=== PATIENT | female | born 1980 | race Caucasian/White ===

== ENCOUNTER 2017-04-06 18:16 | Emergency (ER) | payer OTHER | END 2017-04-06 20:00 | disposition home or self-care (01) | LOC: E/R 18:16 | DX: A08.4 Viral intestinal infection, unspecified (principal); J45.909 Unspecified asthma, uncomplicated | CPT/HCPCS: 99284; Z7502 ==

== ENCOUNTER 2017-05-16 12:29 | Emergency (ER) | payer OTHER ==
[2017-05-16] MEDS: HYDROCODONE/APAP (5/325) TAB PO (13:49)
[2017-05-16 14:33] LABS: ADD UMIC YES; UR ASCORBIC ACID 40 mg/dL (NEGATIVE); UR BACTERIA FEW /HPF (NONE SEEN); UR BILIRUBIN (Dip) NEGATIVE (NEGATIVE); UR BLOOD (Dip) NEGATIVE (NEGATIVE); UR CLARITY SLIGHTLY CLOUDY (CLEAR); UR COLOR YELLOW (YELLOW); UR GLUCOSE (Dip) NEGATIVE (NEGATIVE); UR KETONES (Dip) NEGATIVE (NEGATIVE); UR LEUKOCYTE ESTERASE (Dip) NEGATIVE Leu/ul (NEGATIVE); UR MUCUS FEW /HPF (NONE SEEN); UR NITRITE (Dip) NEGATIVE (NEGATIVE); UR RBC 3 /HPF (0-5); UR SPECIFIC GRAVITY (Dip) 1.026 (1.003-1.030); UR SQUAMOUS EPITHELIAL CELL FEW /HPF (FEW); UR TOTAL PROTEIN (Dip) 1+ mg/dl (NEGATIVE); UR UROBILINOGEN (Dip) NEGATIVE (NEGATIVE); UR WBC 2 /HPF (0-5)
== END 2017-05-16 15:44 | disposition left against medical advice (07) ==
LOC: FTE 12:29
DX: M54.5 Low back pain (principal); R31.9 Hematuria, unspecified
CPT/HCPCS: 71045; 76775; 81001; 81025; 99285-25

== ENCOUNTER 2017-06-11 14:52 | Emergency (ER) | payer OTHER ==
[2017-06-11] MEDS: ONDANSETRON (ODT) 4 MG TAB ODT (17:36)
[2017-06-11] MEDS: HYDROmorphONE 2 MG/ML SYG IM (17:37)
[2017-06-11] MEDS: HYDROmorphONE 0.5 MG/0.5 ML SYG IV (18:36)
[2017-06-11] MEDS: ONDANSETRON 4 MG INJ IV (18:36)
== END 2017-06-11 23:12 | disposition home or self-care (01) ==
LOC: FTE 14:52
DX: S39.92XA Unspecified injury of lower back, initial encounter (principal); S09.90XA Unspecified injury of head, initial encounter; J45.909 Unspecified asthma, uncomplicated; R93.0 Abnormal findings on diagnostic imaging of skull and head, not elsewhere classified; V18.4XXA Pedal cycle driver injured in noncollision transport accident in traffic accident, initial encounter
CPT/HCPCS: 70450; 72125; 72128; 72148; 81025; 96372; 96374; 96375; 99285-25

== ENCOUNTER 2017-09-14 05:54 | Inpatient (IN) | payer OTHER ==
[2017-09-14] MEDS: CEFAZOLIN 2 GM/50 ML (PMX) 50 ML IVPB (06:00)
[2017-09-14] MEDS ORDERED: LACTATED RINGER'S 1,000 ML IV* (06:00)
[2017-09-14] MEDS ORDERED: ROCURONIUM 50 MG INJ (07:36)
[2017-09-14] MEDS ORDERED: CEFAZOLIN 1 GM INJ (07:36)
[2017-09-14] MEDS ORDERED: FENTAnyl 50 MCG/ML VIAL ×4 (07:36→12:29)
[2017-09-14] MEDS ORDERED: LIDOCAINE 100 MG SYRINGE (07:36)
[2017-09-14] MEDS ORDERED: SUCCINYLCHOLINE CHLORIDE 100 MG/5 ML SYG IV (07:36)
[2017-09-14] MEDS ORDERED: PROPOFOL 20 ML (07:36)
[2017-09-14] MEDS ORDERED: SUGAMMADEX SODIUM 200 MG/2 ML VIAL IV (07:36)
[2017-09-14] MEDS ORDERED: MIDAZOLAM 1 MG/ML 2 ML INJ (07:36)
[2017-09-14] MEDS ORDERED: DEXAMETHASONE 4 MG/ML 1 ML INJ (08:23)
[2017-09-14] MEDS: CEFAZOLIN 1 GM INJ (08:33)
[2017-09-14] MEDS: BUPIVACAINE 0.5%/EPI (SDV) 30 ML INJ (08:33)
[2017-09-14] MEDS: THROMBIN 5000 UNIT VIAL (08:34)
[2017-09-14] MEDS: HEPARIN 1000 UNITS/ML 10 ML INJ (08:34)
[2017-09-14] MEDS: GELATIN SIZE 100 SPONGE (08:34)
[2017-09-14] MEDS ORDERED: HYDROmorphONE 1 MG/5 ML IV SYRINGE IV (09:30)
[2017-09-14] MEDS ORDERED: ALBUTEROL 0.083% (NEB) 2.5 MG/3 ML AMP HHN (09:30)
[2017-09-14] MEDS ORDERED: MIDAZOLAM 1 MG/ML 2 ML INJ IV (09:30)
[2017-09-14] MEDS ORDERED: FENTAnyl 50 MCG/ML VIAL IV ×3 (09:30)
[2017-09-14] MEDS ORDERED: METOCLOPRAMIDE 10 MG INJ IV (09:30)
[2017-09-14] MEDS ORDERED: PHENYLephrine (100 MCG/ML) 5ML SYG (12:31)
[2017-09-14] MEDS: ONDANSETRON 4 MG INJ IV (13:28)
[2017-09-14] MEDS: HYDROmorphONE 1 MG/5 ML IV SYRINGE IV ×2 (13:28→13:41)
[2017-09-14] MEDS: MEPERIDINE 25 MG INJ IV ×3 (13:28→15:51)
[2017-09-14] MEDS ORDERED: NACL 0.9% 3 ML SYG IV (13:30)
[2017-09-14] MEDS ORDERED: ONDANSETRON 4 MG INJ IV (13:30)
[2017-09-14] MEDS ORDERED: ACETAMINOPHEN 325 MG TAB PO (13:30)
[2017-09-14] MEDS ORDERED: NALOXONE (0.4 MG/ML) INJ IV (13:30)
[2017-09-14] MEDS ORDERED: PROCHLORPERAZINE 10 MG TAB PO (13:30)
[2017-09-14] MEDS ORDERED: HYDROCODONE/APAP (5/325) TAB PO (13:30)
[2017-09-14] MEDS: HYDROmorphONE 0.2 MG/ML PCA IV (13:54)
[2017-09-14] MEDS: LORAZEPAM 2 MG INJ IV (14:00)
[2017-09-14] MEDS: DIPHENHYDRAMINE 50 MG INJ IV (14:15)
[2017-09-14] MEDS: CEFAZOLIN 1 GM/50 ML (PMX) 50 ML IVPB ×2 (17:18→23:45)
[2017-09-14] MEDS: BRIMONIDINE 0.2% 5 ML BTL BOTH EYES (22:36)
[2017-09-15] MEDS: HYDROmorphONE 0.2 MG/ML PCA IV (01:28)
[2017-09-15] MEDS ORDERED: ALBUTEROL 0.083% (NEB) 2.5 MG/3 ML AMP HHN (02:00)
[2017-09-15 05:12] LABS: HEMATOCRIT 33.7 % (37.0-47.0)
[2017-09-15 05:35] LABS: ANION GAP 18 (8-16)
[2017-09-15 05:40] LABS: BLOOD UREA NITROGEN 6 mg/dl (7-20); CARBON DIOXIDE 20 mmol/L (21-31); CHLORIDE 104 mmol/L (97-110); CREATININE 0.49 mg/dl (0.44-1.00); GLUCOSE 144 mg/dl (70-220); POTASSIUM 3.4 mmol/L (3.5-5.1); SODIUM 139 mmol/L (135-144)
[2017-09-15] MEDS: LEVOTHYROXINE 112 MCG TAB PO (06:31)
[2017-09-15] MEDS: CEFAZOLIN 1 GM/50 ML (PMX) 50 ML IVPB ×2 (06:31→11:57)
[2017-09-15] MEDS: CARISOPRODOL 350 MG TAB PO ×2 (08:05→17:03)
[2017-09-15] MEDS: HYDROmorphONE 0.5 MG/0.5 ML SYG IV ×4 (08:58→20:02)
[2017-09-15] MEDS: BRIMONIDINE 0.2% 5 ML BTL BOTH EYES (09:00)
[2017-09-15] MEDS: LORATADINE 10 MG TAB PO (09:00)
[2017-09-15] MEDS: POTASSIUM CHLORIDE (SR) 20 MEQ TAB PO (10:14)
[2017-09-15] MEDS: HYDROCODONE/APAP (5/325) TAB PO ×3 (10:15→18:05)
[2017-09-15] MEDS: ALPRAZOLAM 0.25 MG TAB PO (21:19)
[2017-09-16] MEDS: HYDROmorphONE 0.5 MG/0.5 ML SYG IV ×4 (01:02→20:40)
[2017-09-16] MEDS: HYDROCODONE/APAP (5/325) TAB PO ×3 (02:44→11:19)
[2017-09-16] MEDS: CARISOPRODOL 350 MG TAB PO ×2 (03:25→16:07)
[2017-09-16] MEDS ORDERED: VITAMIN A & D 5 GM OINT PACKET TOP (05:46)
[2017-09-16 06:13] LABS: ADD MAN DIFF? NO
[2017-09-16 06:19] LABS: ABNORMAL IP MESSAGE 1; BASOPHIL # 0.1 10^3/ul (0.0-0.1); BASOPHILS % 0.4 % (0.0-2.0); EOSINOPHILS # 0.2 10^3/ul (0.0-0.5); EOSINOPHILS % 1.6 % (0.0-7.0); HEMATOCRIT 34.6 % (37.0-47.0); HEMOGLOBIN 11.5 g/dl (12.0-16.0); LYMPHOCYTES # 2.3 10^3/ul (0.8-2.9); LYMPHOCYTES % 15.1 % (15.0-51.0); MEAN CORPUSCULAR HEMOGLOBIN 29.6 pg (29.0-33.0); MEAN CORPUSCULAR HGB CONC 33.2 g/dl (32.0-37.0); MEAN CORPUSCULAR VOLUME 89.2 fl (82.0-101.0); MEAN PLATELET VOLUME 13.2 fl (7.4-10.4); MONOCYTE # 1.3 10^3/ul (0.3-0.9); MONOCYTES % 8.4 % (0.0-11.0); NEUTROPHIL # 11.2 10^3/ul (1.6-7.5); NEUTROPHILS % 73.9 % (39.0-77.0); PLATELET COUNT 233 10^3/UL (140-415); RED BLOOD COUNT 3.88 10^6/ul (4.20-5.40); RED CELL DISTRIBUTION WIDTH 13.6 % (11.5-14.5)
[2017-09-16 06:19] LABS: WHITE BLOOD COUNT 15.2 10^3/ul (4.8-10.8)
[2017-09-16 06:35] LABS: POSITIVE DIFF @See below
[2017-09-16] MEDS: LEVOTHYROXINE 112 MCG TAB PO (06:42)
[2017-09-16 06:49] LABS: ALANINE AMINOTRANSFERASE 28 IU/L (13-69); ALBUMIN 3.9 g/dl (3.3-4.9); ALBUMIN/GLOBULIN RATIO 1.21; ALKALINE PHOSPHATASE 52 IU/L (42-121); ANION GAP 13 (8-16); ASPARTATE AMINO TRANSFERASE 46 IU/L (15-46); BILIRUBIN,INDIRECT 1.1 mg/dl (0-1.1); BILIRUBIN,TOTAL 1.1 mg/dl (0.2-1.3); CALCIUM 8.4 mg/dl (8.4-10.2); CARBON DIOXIDE 25 mmol/L (21-31); CHLORIDE 107 mmol/L (97-110); CREATININE 0.54 mg/dl (0.44-1.00); GLUCOSE 116 mg/dl (70-220); POTASSIUM 3.9 mmol/L (3.5-5.1); SODIUM 141 mmol/L (135-144); TOTAL PROTEIN 7.1 g/dl (6.1-8.1)
[2017-09-16 08:14] LABS: BLOOD UREA NITROGEN 5 mg/dl (7-20)
[2017-09-16] MEDS: BRIMONIDINE 0.2% 5 ML BTL BOTH EYES (08:47)
[2017-09-16] MEDS: VIIBRYD 20 MG PO (08:48)
[2017-09-16] MEDS: LORATADINE 10 MG TAB PO (08:49)
[2017-09-16] MEDS ORDERED: VIIBRYD PO (09:00)
[2017-09-16] MEDS: BISACODYL 10 MG SUPP PR (12:57)
[2017-09-16] MEDS: HYDROmorphONE 1 MG/ML SYG IV (12:59)
[2017-09-16] MEDS: DEXTROSE 5%-0.45% NACL 1,000 ML IV (16:14)
[2017-09-16] MEDS: DEXAMETHASONE 10 MG/ML 1 ML INJ IV (17:44)
[2017-09-16] MEDS: ZOLPIDEM 5 MG TAB PO (22:47)
[2017-09-17] MEDS: HYDROCODONE/APAP (5/325) TAB PO ×4 (01:00→21:33)
[2017-09-17] MEDS: LEVOTHYROXINE 112 MCG TAB PO (06:06)
[2017-09-17] MEDS: BRIMONIDINE 0.2% 5 ML BTL BOTH EYES (08:49)
[2017-09-17] MEDS: VIIBRYD 20 MG PO (08:49)
[2017-09-17] MEDS: LORATADINE 10 MG TAB PO (08:50)
[2017-09-17] MEDS: HYDROmorphONE 0.5 MG/0.5 ML SYG IV ×2 (09:36→17:44)
[2017-09-17] MEDS: CARISOPRODOL 350 MG TAB PO (15:18)
[2017-09-17] MEDS: ZOLPIDEM 5 MG TAB PO (23:42)
[2017-09-18] MEDS: HYDROCODONE/APAP (5/325) TAB PO ×2 (05:34→09:52)
[2017-09-18] MEDS: LEVOTHYROXINE 112 MCG TAB PO (05:34)
[2017-09-18] MEDS: VIIBRYD 20 MG PO (09:06)
[2017-09-18] MEDS: CARISOPRODOL 350 MG TAB PO (09:06)
[2017-09-18] MEDS: LORATADINE 10 MG TAB PO (09:07)
[2017-09-18] MEDS: BRIMONIDINE 0.2% 5 ML BTL BOTH EYES (09:08)
== END 2017-09-18 15:30 | disposition home or self-care (01) | DRG 454 ==
LOC: REC 05:54 → MS1 14:52
PROC: 0SG30A0 Fusion of Lumbosacral Joint with Interbody Fusion Device, Anterior Approach, Anterior Column, Open Approach (ICD-10-PCS; principal; 2017-09-14 07:30)
PROC: 0SG30K1 Fusion of Lumbosacral Joint with Nonautologous Tissue Substitute, Posterior Approach, Posterior Column, Open Approach (ICD-10-PCS; 2017-09-14 07:30)
PROC: 0SB40ZZ Excision of Lumbosacral Disc, Open Approach (ICD-10-PCS; 2017-09-14 07:30)
PROC: 4A11X4G Monitoring of Peripheral Nervous Electrical Activity, Intraoperative, External Approach (ICD-10-PCS; 2017-09-14 07:30)
DX: M43.17 Spondylolisthesis, lumbosacral region (principal); Z68.42 Body mass index [BMI] 45.0-49.9, adult; E66.01 Morbid (severe) obesity due to excess calories; E03.9 Hypothyroidism, unspecified; F32.9 Major depressive disorder, single episode, unspecified; F41.9 Anxiety disorder, unspecified; H40.9 Unspecified glaucoma; M48.07 Spinal stenosis, lumbosacral region; M51.17 Intervertebral disc disorders with radiculopathy, lumbosacral region; I10 Essential (primary) hypertension; E78.5 Hyperlipidemia, unspecified; E87.6 Hypokalemia; R53.1 Weakness; G47.30 Sleep apnea, unspecified
CPT/HCPCS: 72100; 72110; 72131; 74176; 80048; 80053; 85014; 85018; 85025; 86850; 86900; 86901; 86920; 87086; 88304; 93970; 97110; 97116; 97161; 97530

== ENCOUNTER 2018-01-07 12:41 | Day surgery (SDC) | payer OTHER ==
[~2018-01-07 12:41] MED LIST: CEFAZOLIN 1 GM INJ; METOCLOPRAMIDE 10 MG INJ; PROPOFOL 200 MG INJ
[2018-01-07] MEDS ORDERED: MIDAZOLAM 1 MG/ML 2 ML INJ (14:03)
[2018-01-07] MEDS ORDERED: FENTAnyl 50 MCG/ML VIAL (14:03)
[2018-01-07] MEDS ORDERED: PROPOFOL 20 ML (14:03)
[2018-01-07] MEDS ORDERED: ONDANSETRON 4 MG INJ (14:06)
[2018-01-07] MEDS ORDERED: LIDOCAINE 2% (SDV) 5 ML INJ (14:07)
[2018-01-07] MEDS ORDERED: LEVALBUTEROL (NEB) 1.25 MG/0.5 ML AMP HHN (15:00)
[2018-01-07] MEDS ORDERED: IPRATROPIUM (NEB) 0.5 MG/2.5 ML AMP HHN (15:00)
[2018-01-07] MEDS ORDERED: hydrALAzine 20 MG INJ IV (15:00)
[2018-01-07] MEDS ORDERED: FENTAnyl 50 MCG/ML VIAL IV (15:00)
[2018-01-07] MEDS ORDERED: DIPHENHYDRAMINE 50 MG INJ IV (15:00)
[2018-01-07] MEDS: ROPIVACAINE 0.5 % 30 ML VIAL (15:09)
[2018-01-07] MEDS: LIDOCAINE 1% (STERILE-PAK) 30 ML INJ (15:09)
[2018-01-07] MEDS: BACITRACIN/POLYMYXIN 28.35 GM OINT TOP (15:33)
[2018-01-07] MEDS: LACTATED RINGER'S 1,000 ML IV (15:55)
[2018-01-07] MEDS ORDERED: IBUPROFEN 600 MG TAB PO (16:00)
[2018-01-07] MEDS ORDERED: ONDANSETRON 4 MG INJ IV (16:00)
[2018-01-07] MEDS: ONDANSETRON 4 MG INJ IV (16:17)
[2018-01-07] MEDS: HYDROmorphONE 1 MG/5 ML IV SYRINGE IV (17:01)
[2018-01-07] MEDS: HYDROCODONE/APAP (5/325) TAB PO (17:23)
== END 2018-01-07 17:52 | disposition home or self-care (01) ==
LOC: SDS 12:41
DX: G56.02 Carpal tunnel syndrome, left upper limb (principal); M67.432 Ganglion, left wrist; E78.5 Hyperlipidemia, unspecified; I10 Essential (primary) hypertension; G62.9 Polyneuropathy, unspecified; E66.01 Morbid (severe) obesity due to excess calories; Z68.41 Body mass index [BMI] 40.0-44.9, adult; M10.9 Gout, unspecified; Z88.6 Allergy status to analgesic agent
CPT/HCPCS: 25111; 84703; 88304; 88307

== ENCOUNTER 2018-03-30 08:19 | Emergency (ER) | payer OTHER ==
[2018-03-30] MEDS: KETOROLAC 15 MG INJ IV (09:07)
[2018-03-30] MEDS: SOD CHLORIDE 0.9% 1,000 ML IV (09:07)
[2018-03-30 09:11] LABS: HEMATOCRIT 37.2 % (37.0-47.0); HEMOGLOBIN 12.3 g/dl (12.0-16.0); MEAN CORPUSCULAR HEMOGLOBIN 28.6 pg (29.0-33.0); MEAN CORPUSCULAR HGB CONC 33.1 g/dl (32.0-37.0); MEAN CORPUSCULAR VOLUME 86.5 fl (82.0-101.0); MEAN PLATELET VOLUME 12.5 fl (7.4-10.4); PLATELET COUNT 246 10^3/UL (140-415); RED CELL DISTRIBUTION WIDTH 14.3 % (11.5-14.5)
[2018-03-30 09:11] LABS: WHITE BLOOD COUNT 18.6 10^3/ul (4.8-10.8)
[2018-03-30 09:15] LABS: ADD UMIC YES; UR ASCORBIC ACID NEGATIVE (NEGATIVE); UR BILIRUBIN (Dip) NEGATIVE (NEGATIVE); UR BLOOD (Dip) 2+ mg/dL (NEGATIVE); UR CLARITY CLEAR (CLEAR); UR COLOR YELLOW (YELLOW); UR GLUCOSE (Dip) NEGATIVE (NEGATIVE); UR KETONES (Dip) NEGATIVE (NEGATIVE); UR LEUKOCYTE ESTERASE (Dip) NEGATIVE Leu/ul (NEGATIVE); UR NITRITE (Dip) NEGATIVE (NEGATIVE); UR RBC 0 /HPF (0-5); UR SPECIFIC GRAVITY (Dip) 1.013 (1.003-1.030); UR TOTAL PROTEIN (Dip) NEGATIVE (NEGATIVE); UR UROBILINOGEN (Dip) NEGATIVE (NEGATIVE); UR WBC 0 /HPF (0-5)
[2018-03-30 09:18] LABS: ADD MAN DIFF? YES; POSITIVE DIFF @See below
[2018-03-30 09:30] LABS: INR 0.96; PROTIME 12.9 Sec (11.9-14.9)
[2018-03-30 09:31] LABS: ALANINE AMINOTRANSFERASE 22 IU/L (13-69); ALBUMIN/GLOBULIN RATIO 1.17; ALKALINE PHOSPHATASE 58 IU/L (42-121); ANION GAP 8 (5-13); ASPARTATE AMINO TRANSFERASE 20 IU/L (15-46); BILIRUBIN,INDIRECT 0.6 mg/dl (0-1.1); BILIRUBIN,TOTAL 0.6 mg/dl (0.2-1.3); BLOOD UREA NITROGEN 8 mg/dl (7-20); CALCIUM 9.1 mg/dl (8.4-10.2); CARBON DIOXIDE 26 mmol/L (21-31); CHLORIDE 102 mmol/L (97-110); CREATININE 0.52 mg/dl (0.44-1.00); Estimated GFR > 60 mL/min (>60); GLUCOSE 92 mg/dl (70-220); LIPASE 76 U/L (23-300); PARTIAL THROMBOPLASTIN TIME 31.4 Sec (23.0-35.0); POTASSIUM 4.2 mmol/L (3.5-5.1); SODIUM 136 mmol/L (135-144); TOTAL PROTEIN 7.4 g/dl (6.1-8.1)
[2018-03-30 09:59] LABS: ANISOCYTOSIS 2+ (0-0); BAND NEUTROPHILS #M 0.5 10^3/ul (0.0-0.6); BAND NEUTROPHILS % (M) 3 % (0-4); EOSINOPHILS % (M) 2 % (0-7); GIANT THROMBO% (M) 1 % (0-0); LYMPHOCYTES #M 3.3 10^3/ul (0.8-2.9); LYMPHOCYTES % (M) 18 % (15-51); MICROCYTOSIS 2+ (0-0); MONOCYTE #M 0.5 10^3/ul (0.3-0.9); MONOCYTES % (M) 3 % (0-11); PLATELET ESTIMATE NORMAL; POIKILOCYTOSIS 1+ (0-0); POLYCHROMASIA 1+ (0-0); REACTIVE LYMPHOCYTES #M 1.3 10^3/ul (0.0-0.0); REACTIVE LYMPHOCYTES% (M) 7 % (0-0); SEG NEUT #M 12.6 10^3/ul (1.6-7.5); SEGMENTED NEUTROPHILS (M) % 67 % (39-77); SMUDGE%M 3 % (0-0)
[2018-03-30] MEDS: ONDANSETRON 4 MG INJ IV (10:10)
== END 2018-03-30 11:02 | disposition home or self-care (01) ==
LOC: FTE 08:19
DX: R10.9 Unspecified abdominal pain (principal); J45.909 Unspecified asthma, uncomplicated; R11.0 Nausea
CPT/HCPCS: 36415; 74176; 80053; 81001; 81025; 83690; 85025; 85610; 85730; 96361; 96374; 96375; 99285-25

== ENCOUNTER 2018-04-30 11:45 | Emergency (ER) | payer OTHER ==
[2018-04-30] MEDS: ONDANSETRON 4 MG INJ IV (14:29)
[2018-04-30] MEDS: SOD CHLORIDE 0.9% 1,000 ML IV (14:29)
[2018-04-30] MEDS: morphine 4 MG/ML VIAL IV (14:29)
[2018-04-30 14:30] LABS: ADD MAN DIFF? NO
[2018-04-30 14:38] LABS: BASOPHIL # 0.1 10^3/ul (0.0-0.1); BASOPHILS % 0.6 % (0.0-2.0); EOSINOPHILS # 0.2 10^3/ul (0.0-0.5); EOSINOPHILS % 1.6 % (0.0-7.0); HEMATOCRIT 40.8 % (37.0-47.0); LYMPHOCYTES # 3.3 10^3/ul (0.8-2.9); LYMPHOCYTES % 32.9 % (15.0-51.0); MEAN CORPUSCULAR HEMOGLOBIN 27.8 pg (29.0-33.0); MEAN CORPUSCULAR HGB CONC 31.9 g/dl (32.0-37.0); MEAN CORPUSCULAR VOLUME 87.4 fl (82.0-101.0); MONOCYTE # 0.7 10^3/ul (0.3-0.9); MONOCYTES % 6.7 % (0.0-11.0); NEUTROPHIL # 5.7 10^3/ul (1.6-7.5); NEUTROPHILS % 57.9 % (39.0-77.0); PLATELET COUNT 255 10^3/UL (140-415); RED BLOOD COUNT 4.67 10^6/ul (4.20-5.40); RED CELL DISTRIBUTION WIDTH 13.5 % (11.5-14.5)
[2018-04-30 14:38] LABS: WHITE BLOOD COUNT 9.9 10^3/ul (4.8-10.8)
[2018-04-30 14:42] LABS: ADD UMIC YES; UR ASCORBIC ACID NEGATIVE (NEGATIVE); UR BACTERIA FEW /HPF (NONE SEEN); UR BILIRUBIN (Dip) NEGATIVE (NEGATIVE); UR BLOOD (Dip) 2+ mg/dL (NEGATIVE); UR CLARITY CLEAR (CLEAR); UR COLOR YELLOW (YELLOW); UR GLUCOSE (Dip) NEGATIVE (NEGATIVE); UR KETONES (Dip) NEGATIVE (NEGATIVE); UR LEUKOCYTE ESTERASE (Dip) NEGATIVE Leu/ul (NEGATIVE); UR MUCUS FEW /HPF (NONE SEEN); UR NITRITE (Dip) NEGATIVE (NEGATIVE); UR RBC 1 /HPF (0-5); UR SPECIFIC GRAVITY (Dip) 1.014 (1.003-1.030); UR TOTAL PROTEIN (Dip) NEGATIVE (NEGATIVE); UR UROBILINOGEN (Dip) NEGATIVE (NEGATIVE); UR WBC 2 /HPF (0-5)
[2018-04-30 15:08] LABS: ALANINE AMINOTRANSFERASE 25 IU/L (13-69); ALBUMIN 4.5 g/dl (3.3-4.9); ALBUMIN/GLOBULIN RATIO 1.25; ALKALINE PHOSPHATASE 65 IU/L (42-121); ANION GAP 6 (5-13); ASPARTATE AMINO TRANSFERASE 31 IU/L (15-46); BILIRUBIN,INDIRECT 0.3 mg/dl (0-1.1); BILIRUBIN,TOTAL 0.3 mg/dl (0.2-1.3); BLOOD UREA NITROGEN 7 mg/dl (7-20); CALCIUM 9.1 mg/dl (8.4-10.2); CARBON DIOXIDE 29 mmol/L (21-31); CHLORIDE 104 mmol/L (97-110); CREATININE 0.55 mg/dl (0.44-1.00); Estimated GFR > 60 mL/min (>60); GLUCOSE 87 mg/dl (70-220); LIPASE 76 U/L (23-300); POTASSIUM 3.6 mmol/L (3.5-5.1); TOTAL PROTEIN 8.1 g/dl (6.1-8.1)
[2018-04-30 15:13] LABS: SODIUM 139 mmol/L (135-144)
[2018-04-30] MEDS: HYDROmorphONE 0.5 MG/0.5 ML SYG IV (15:58)
== END 2018-04-30 17:02 | disposition home or self-care (01) ==
LOC: FTE 11:45
DX: R10.9 Unspecified abdominal pain (principal); J45.909 Unspecified asthma, uncomplicated
CPT/HCPCS: 36415; 80053; 81001; 81025; 83690; 85025; 96361; 96374; 96375; 99284-25

== ENCOUNTER 2018-05-22 13:20 | Emergency (ER) | payer OTHER ==
[2018-05-22] MEDS: ACETAMINOPHEN 500 MG TAB PO (14:37)
== END 2018-05-22 14:57 | disposition home or self-care (01) ==
LOC: FTE 13:20
DX: J06.9 Acute upper respiratory infection, unspecified (principal); S09.90XA Unspecified injury of head, initial encounter; J45.909 Unspecified asthma, uncomplicated; W22.8XXA Striking against or struck by other objects, initial encounter; Y92.009 Unspecified place in unspecified non-institutional (private) residence as the place of occurrence of the external cause
CPT/HCPCS: 99283; Z7502

== ENCOUNTER 2018-06-23 18:52 | Inpatient (IN) | payer OTHER ==
[2018-06-23] MEDS: SOD CHLORIDE 0.9% 1,000 ML IV (21:21)
[2018-06-23] MEDS: DIPHENHYDRAMINE 50 MG INJ IV (21:21)
[2018-06-23] MEDS: METOCLOPRAMIDE 10 MG INJ IV (21:21)
[2018-06-23 21:24] LABS: ADD MAN DIFF? NO
[2018-06-23 21:26] LABS: WHITE BLOOD COUNT 10.4 10^3/ul (4.8-10.8)
[2018-06-23 21:26] LABS: BASOPHIL # 0.1 10^3/ul (0.0-0.1); BASOPHILS % 0.6 % (0.0-2.0); EOSINOPHILS # 0.4 10^3/ul (0.0-0.5); HEMATOCRIT 37.6 % (37.0-47.0); HEMOGLOBIN 12.3 g/dl (12.0-16.0); LYMPHOCYTES # 3.7 10^3/ul (0.8-2.9); LYMPHOCYTES % 35.6 % (15.0-51.0); MEAN CORPUSCULAR HEMOGLOBIN 28.5 pg (29.0-33.0); MEAN CORPUSCULAR HGB CONC 32.7 g/dl (32.0-37.0); MEAN CORPUSCULAR VOLUME 87.2 fl (82.0-101.0); MEAN PLATELET VOLUME 12.5 fl (7.4-10.4); MONOCYTES % 9.2 % (0.0-11.0); NEUTROPHIL # 5.2 10^3/ul (1.6-7.5); NEUTROPHILS % 50.3 % (39.0-77.0); PLATELET COUNT 204 10^3/UL (140-415); RED BLOOD COUNT 4.31 10^6/ul (4.20-5.40); RED CELL DISTRIBUTION WIDTH 14.1 % (11.5-14.5)
[2018-06-23 21:45] LABS: ALANINE AMINOTRANSFERASE 25 IU/L (13-69); ALBUMIN 4.1 g/dl (3.3-4.9); ALBUMIN/GLOBULIN RATIO 1.13; ALKALINE PHOSPHATASE 82 IU/L (42-121); ANION GAP 7 (5-13); ASPARTATE AMINO TRANSFERASE 25 IU/L (15-46); BILIRUBIN,INDIRECT 0.3 mg/dl (0-1.1); BILIRUBIN,TOTAL 0.3 mg/dl (0.2-1.3); BLOOD UREA NITROGEN 9 mg/dl (7-20); CALCIUM 9.2 mg/dl (8.4-10.2); CARBON DIOXIDE 28 mmol/L (21-31); CHLORIDE 108 mmol/L (97-110); CREATININE 0.64 mg/dl (0.44-1.00); Estimated GFR > 60 mL/min (>60); GLUCOSE 101 mg/dl (70-220); LIPASE 103 U/L (23-300); POTASSIUM 4.3 mmol/L (3.5-5.1); SODIUM 143 mmol/L (135-144); TOTAL PROTEIN 7.7 g/dl (6.1-8.1)
[2018-06-23 21:58] LABS: ADD UMIC YES; UR ASCORBIC ACID NEGATIVE (NEGATIVE); UR BILIRUBIN (Dip) NEGATIVE (NEGATIVE); UR BLOOD (Dip) 2+ mg/dL (NEGATIVE); UR CLARITY SLIGHTLY CLOUDY (CLEAR); UR COLOR YELLOW (YELLOW); UR GLUCOSE (Dip) NEGATIVE (NEGATIVE); UR KETONES (Dip) NEGATIVE (NEGATIVE); UR LEUKOCYTE ESTERASE (Dip) NEGATIVE Leu/ul (NEGATIVE); UR MUCUS FEW /HPF (NONE SEEN); UR NITRITE (Dip) NEGATIVE (NEGATIVE); UR RBC 8 /HPF (0-5); UR SPECIFIC GRAVITY (Dip) 1.023 (1.003-1.030); UR TOTAL PROTEIN (Dip) NEGATIVE (NEGATIVE); UR UROBILINOGEN (Dip) 1+ mg/dL (NEGATIVE); UR WBC 6 /HPF (0-5)
[2018-06-23] MEDS: IOHEXOL 300MG/ML 150 ML BTL (22:51)
[2018-06-23] MEDS: SOD CHLORIDE 0.9% 100 ML (22:51)
[2018-06-24] MEDS ORDERED: NACL 0.9% 3 ML SYG IV (01:30)
[2018-06-24] MEDS ORDERED: DOCUSATE SODIUM 100 MG CAP PO (01:30)
[2018-06-24] MEDS ORDERED: BISACODYL (EC) 5 MG TAB PO (01:30)
[2018-06-24] MEDS ORDERED: ACETAMINOPHEN 325 MG TAB PO (01:30)
[2018-06-24] MEDS ORDERED: ONDANSETRON 4 MG INJ IV (01:30)
[2018-06-24] MEDS: HYDROmorphONE 0.5 MG/0.5 ML SYG IV ×2 (01:43→09:18)
[2018-06-24] MEDS ORDERED: HYDROmorphONE 0.5 MG/0.5 ML SYG IV (04:00)
[2018-06-24 05:15] LABS: ADD MAN DIFF? NO
[2018-06-24 05:17] LABS: WHITE BLOOD COUNT 8.3 10^3/ul (4.8-10.8)
[2018-06-24 05:17] LABS: BASOPHILS % 0.5 % (0.0-2.0); EOSINOPHILS # 0.4 10^3/ul (0.0-0.5); EOSINOPHILS % 4.3 % (0.0-7.0); HEMATOCRIT 37.5 % (37.0-47.0); HEMOGLOBIN 11.7 g/dl (12.0-16.0); LYMPHOCYTES # 3.2 10^3/ul (0.8-2.9); LYMPHOCYTES % 38.4 % (15.0-51.0); MEAN CORPUSCULAR HEMOGLOBIN 27.7 pg (29.0-33.0); MEAN CORPUSCULAR HGB CONC 31.2 g/dl (32.0-37.0); MEAN CORPUSCULAR VOLUME 88.7 fl (82.0-101.0); MEAN PLATELET VOLUME 12.6 fl (7.4-10.4); MONOCYTE # 0.5 10^3/ul (0.3-0.9); NEUTROPHIL # 4.2 10^3/ul (1.6-7.5); NEUTROPHILS % 50.4 % (39.0-77.0); PLATELET COUNT 206 10^3/UL (140-415); RED BLOOD COUNT 4.23 10^6/ul (4.20-5.40)
[2018-06-24 05:39] LABS: LACTATE DEHYDROGENASE 518 IU/L (313-618)
[2018-06-24 05:42] LABS: HEMOGLOBIN A1C 5.5 % (0-5.9)
[2018-06-24 05:44] LABS: ALANINE AMINOTRANSFERASE 23 IU/L (13-69); ALBUMIN 3.9 g/dl (3.3-4.9); ALBUMIN/GLOBULIN RATIO 1.14; ALKALINE PHOSPHATASE 64 IU/L (42-121); ANION GAP 10 (5-13); ASPARTATE AMINO TRANSFERASE 26 IU/L (15-46); BILIRUBIN,INDIRECT 0.4 mg/dl (0-1.1); BILIRUBIN,TOTAL 0.4 mg/dl (0.2-1.3); BLOOD UREA NITROGEN 10 mg/dl (7-20); CALCIUM 8.7 mg/dl (8.4-10.2); CARBON DIOXIDE 27 mmol/L (21-31); CHLORIDE 106 mmol/L (97-110); CHOLESTEROL 160 mg/dl (100-200); CREATININE 0.62 mg/dl (0.44-1.00); Estimated GFR > 60 mL/min (>60); GLUCOSE 146 mg/dl (70-220); HDL CHOLESTEROL 32 mg/dl (34-82); LDL CHOLESTEROL,CALCULATED 88 mg/dl; POTASSIUM 4.1 mmol/L (3.5-5.1); SODIUM 143 mmol/L (135-144); TOTAL PROTEIN 7.3 g/dl (6.1-8.1); TRIGLYCERIDES 202 mg/dl (0-149)
[2018-06-24 06:12] LABS: THYROID STIMULATING HORMONE 0.609 MIU/L (0.465-4.680)
[2018-06-24] MEDS: HEPARIN 5,000 UNIT/1 ML VIAL SC (09:00)
[2018-06-24] MEDS: LEVOTHYROXINE 112 MCG TAB PO (09:18)
[2018-06-24] MEDS: HYDROCODONE/APAP (5/325) TAB PO ×2 (11:14→19:39)
[2018-06-24 14:28] LABS: ADD UMIC YES; UR ASCORBIC ACID NEGATIVE (NEGATIVE); UR BILIRUBIN (Dip) NEGATIVE (NEGATIVE); UR BLOOD (Dip) 1+ mg/dL (NEGATIVE); UR CLARITY CLEAR (CLEAR); UR COLOR YELLOW (YELLOW); UR GLUCOSE (Dip) NEGATIVE (NEGATIVE); UR KETONES (Dip) NEGATIVE (NEGATIVE); UR LEUKOCYTE ESTERASE (Dip) NEGATIVE Leu/ul (NEGATIVE); UR NITRITE (Dip) NEGATIVE (NEGATIVE); UR RBC 1 /HPF (0-5); UR SPECIFIC GRAVITY (Dip) 1.016 (1.003-1.030); UR TOTAL PROTEIN (Dip) NEGATIVE (NEGATIVE); UR UROBILINOGEN (Dip) 1+ mg/dL (NEGATIVE); UR WBC 0 /HPF (0-5)
[2018-06-24] MEDS: CARISOPRODOL 350 MG TAB PO (20:20)
[2018-06-24] MEDS: oxyCODONE 15 MG TAB PO (20:20)
[2018-06-24] MEDS: HYDROmorphONE 1 MG/ML SYG IV (23:12)
[2018-06-25 05:16] LABS: ADD MAN DIFF? NO
[2018-06-25 05:20] LABS: WHITE BLOOD COUNT 9.7 10^3/ul (4.8-10.8)
[2018-06-25 05:20] LABS: BASOPHIL # 0.1 10^3/ul (0.0-0.1); BASOPHILS % 0.6 % (0.0-2.0); EOSINOPHILS # 0.4 10^3/ul (0.0-0.5); EOSINOPHILS % 3.7 % (0.0-7.0); HEMATOCRIT 35.5 % (37.0-47.0); HEMOGLOBIN 11.5 g/dl (12.0-16.0); LYMPHOCYTES # 3.6 10^3/ul (0.8-2.9); LYMPHOCYTES % 36.8 % (15.0-51.0); MEAN CORPUSCULAR HEMOGLOBIN 28.3 pg (29.0-33.0); MEAN CORPUSCULAR HGB CONC 32.4 g/dl (32.0-37.0); MEAN CORPUSCULAR VOLUME 87.2 fl (82.0-101.0); MEAN PLATELET VOLUME 12.8 fl (7.4-10.4); MONOCYTE # 0.8 10^3/ul (0.3-0.9); MONOCYTES % 8.6 % (0.0-11.0); NEUTROPHIL # 4.8 10^3/ul (1.6-7.5); NEUTROPHILS % 49.8 % (39.0-77.0); PLATELET COUNT 192 10^3/UL (140-415); RED BLOOD COUNT 4.07 10^6/ul (4.20-5.40); RED CELL DISTRIBUTION WIDTH 13.8 % (11.5-14.5)
[2018-06-25 05:40] LABS: ALBUMIN/GLOBULIN RATIO 1.15; ANION GAP 11 (5-13); Estimated GFR > 60 mL/min (>60)
[2018-06-25 06:08] LABS: ALANINE AMINOTRANSFERASE 27 IU/L (13-69); ALBUMIN 3.7 g/dl (3.3-4.9); ALKALINE PHOSPHATASE 56 IU/L (42-121); ASPARTATE AMINO TRANSFERASE 23 IU/L (15-46); BILIRUBIN,INDIRECT 0.6 mg/dl (0-1.1); BILIRUBIN,TOTAL 0.6 mg/dl (0.2-1.3); BLOOD UREA NITROGEN 10 mg/dl (7-20); CALCIUM 8.8 mg/dl (8.4-10.2); CARBON DIOXIDE 25 mmol/L (21-31); CHLORIDE 104 mmol/L (97-110); CREATININE 0.54 mg/dl (0.44-1.00); GLUCOSE 98 mg/dl (70-220); POTASSIUM 3.7 mmol/L (3.5-5.1); SODIUM 140 mmol/L (135-144)
[2018-06-25 06:17] LABS: TOTAL PROTEIN 6.9 g/dl (6.1-8.1)
[2018-06-25] MEDS: LEVOTHYROXINE 112 MCG TAB PO (06:51)
[2018-06-25] MEDS: IBUPROFEN 800 MG TAB PO (09:03)
[2018-06-25] MEDS: oxyCODONE 15 MG TAB PO ×2 (13:54→17:54)
[2018-06-25] MEDS: CARISOPRODOL 350 MG TAB PO (16:55)
== END 2018-06-25 19:10 | disposition home or self-care (01) | DRG 700 ==
LOC: FTE 18:52 → MS1 06-24 01:15
PROC: 3E0F7GC Introduction of Other Therapeutic Substance into Respiratory Tract, Via Natural or Artificial Opening (ICD-10-PCS; principal; 2018-06-25)
DX: N28.89 Other specified disorders of kidney and ureter (principal); R51 Headache; E03.9 Hypothyroidism, unspecified; H40.9 Unspecified glaucoma; R91.1 Solitary pulmonary nodule; J45.909 Unspecified asthma, uncomplicated
CPT/HCPCS: 71250; 74176; 74177; 76775; 80053; 80061; 81001; 81025; 82306; 83036; 83615; 83690; 83735; 84443; 85025; 87086; 88104; 94660; 96361; 96374; 96375; 99285-25

== ENCOUNTER 2018-08-01 14:12 | Emergency (ER) | payer OTHER ==
[2018-08-01] MEDS: ONDANSETRON 4 MG INJ IV (16:16)
[2018-08-01] MEDS: morphine 4 MG/ML VIAL IV (16:16)
[2018-08-01 16:34] LABS: ADD MAN DIFF? NO
[2018-08-01 16:38] LABS: BASOPHIL # 0.1 10^3/ul (0.0-0.1); BASOPHILS % 0.8 % (0.0-2.0); EOSINOPHILS # 0.2 10^3/ul (0.0-0.5); EOSINOPHILS % 1.6 % (0.0-7.0); HEMATOCRIT 39.7 % (37.0-47.0); HEMOGLOBIN 12.9 g/dl (12.0-16.0); LYMPHOCYTES # 3.5 10^3/ul (0.8-2.9); LYMPHOCYTES % 36.8 % (15.0-51.0); MEAN CORPUSCULAR HEMOGLOBIN 28.3 pg (29.0-33.0); MEAN CORPUSCULAR HGB CONC 32.5 g/dl (32.0-37.0); MEAN CORPUSCULAR VOLUME 87.1 fl (82.0-101.0); MEAN PLATELET VOLUME 12.8 fl (7.4-10.4); MONOCYTE # 0.7 10^3/ul (0.3-0.9); MONOCYTES % 7.6 % (0.0-11.0); NEUTROPHIL # 5.1 10^3/ul (1.6-7.5); NEUTROPHILS % 52.7 % (39.0-77.0); PLATELET COUNT 272 10^3/UL (140-415); RED BLOOD COUNT 4.56 10^6/ul (4.20-5.40); RED CELL DISTRIBUTION WIDTH 14.4 % (11.5-14.5)
[2018-08-01 16:38] LABS: WHITE BLOOD COUNT 9.6 10^3/ul (4.8-10.8)
[2018-08-01 16:39] LABS: ADD UMIC YES; UR ASCORBIC ACID NEGATIVE (NEGATIVE); UR BACTERIA FEW /HPF (NONE SEEN); UR BILIRUBIN (Dip) NEGATIVE (NEGATIVE); UR BLOOD (Dip) 1+ mg/dL (NEGATIVE); UR CLARITY SLIGHTLY CLOUDY (CLEAR); UR COLOR YELLOW (YELLOW); UR GLUCOSE (Dip) NEGATIVE (NEGATIVE); UR KETONES (Dip) NEGATIVE (NEGATIVE); UR LEUKOCYTE ESTERASE (Dip) NEGATIVE Leu/ul (NEGATIVE); UR MUCUS FEW /HPF (NONE SEEN); UR NITRITE (Dip) NEGATIVE (NEGATIVE); UR RBC 1 /HPF (0-5); UR SPECIFIC GRAVITY (Dip) 1.014 (1.003-1.030); UR SQUAMOUS EPITHELIAL CELL FEW /HPF (FEW); UR TOTAL PROTEIN (Dip) NEGATIVE (NEGATIVE); UR UROBILINOGEN (Dip) NEGATIVE (NEGATIVE); UR WBC 0 /HPF (0-5)
[2018-08-01 16:59] LABS: ALANINE AMINOTRANSFERASE 36 IU/L (13-69); ALBUMIN 4.4 g/dl (3.3-4.9); ALBUMIN/GLOBULIN RATIO 1.37; ALKALINE PHOSPHATASE 57 IU/L (42-121); ANION GAP 11 (5-13); ASPARTATE AMINO TRANSFERASE 30 IU/L (15-46); BILIRUBIN,INDIRECT 0.9 mg/dl (0-1.1); BILIRUBIN,TOTAL 0.9 mg/dl (0.2-1.3); BLOOD UREA NITROGEN 8 mg/dl (7-20); CALCIUM 8.9 mg/dl (8.4-10.2); CARBON DIOXIDE 27 mmol/L (21-31); CHLORIDE 104 mmol/L (97-110); CREATININE 0.63 mg/dl (0.44-1.00); Estimated GFR > 60 mL/min (>60); GLUCOSE 89 mg/dl (70-220); LIPASE 80 U/L (23-300); SODIUM 142 mmol/L (135-144); TOTAL PROTEIN 7.6 g/dl (6.1-8.1)
[2018-08-01] MEDS: HYDROmorphONE 0.5 MG/0.5 ML SYG IV (17:43)
== END 2018-08-01 19:25 | disposition home or self-care (01) ==
LOC: FTE 14:12
DX: R10.9 Unspecified abdominal pain (principal)
CPT/HCPCS: 80053; 81001; 81025; 83690; 85025; 96374; 96375; 99284-25

== ENCOUNTER 2018-08-03 16:32 | Emergency (ER) | payer OTHER ==
[2018-08-03] MEDS: KETOROLAC 30 MG INJ IM (18:52)
[2018-08-03] MEDS: ONDANSETRON (ODT) 4 MG TAB ODT (18:52)
[2018-08-03] MEDS: SOD CHLORIDE 0.9% 1,000 ML IV (20:09)
[2018-08-03] MEDS: morphine 4 MG/ML VIAL IV ×2 (20:09→20:10)
[2018-08-03 20:21] LABS: ADD MAN DIFF? NO
[2018-08-03 20:22] LABS: WHITE BLOOD COUNT 12.8 10^3/ul (4.8-10.8)
[2018-08-03 20:23] LABS: BASOPHIL # 0.1 10^3/ul (0.0-0.1); BASOPHILS % 0.7 % (0.0-2.0); EOSINOPHILS # 0.1 10^3/ul (0.0-0.5); EOSINOPHILS % 0.9 % (0.0-7.0); HEMOGLOBIN 13.1 g/dl (12.0-16.0); LYMPHOCYTES # 3.8 10^3/ul (0.8-2.9); LYMPHOCYTES % 29.6 % (15.0-51.0); MEAN CORPUSCULAR HEMOGLOBIN 28.5 pg (29.0-33.0); MEAN CORPUSCULAR HGB CONC 32.8 g/dl (32.0-37.0); MEAN CORPUSCULAR VOLUME 87.1 fl (82.0-101.0); MEAN PLATELET VOLUME 11.9 fl (7.4-10.4); MONOCYTE # 0.8 10^3/ul (0.3-0.9); MONOCYTES % 6.4 % (0.0-11.0); NEUTROPHIL # 7.9 10^3/ul (1.6-7.5); PLATELET COUNT 291 10^3/UL (140-415); RED BLOOD COUNT 4.59 10^6/ul (4.20-5.40); RED CELL DISTRIBUTION WIDTH 14.5 % (11.5-14.5)
[2018-08-03 20:35] LABS: ADD UMIC YES; UR ASCORBIC ACID 20 mg/dL (NEGATIVE); UR BACTERIA FEW /HPF (NONE SEEN); UR BILIRUBIN (Dip) NEGATIVE (NEGATIVE); UR BLOOD (Dip) 3+ mg/dL (NEGATIVE); UR CLARITY CLOUDY (CLEAR); UR COLOR YELLOW (YELLOW); UR GLUCOSE (Dip) NEGATIVE (NEGATIVE); UR KETONES (Dip) NEGATIVE (NEGATIVE); UR LEUKOCYTE ESTERASE (Dip) TRACE Leu/ul (NEGATIVE); UR MUCUS MANY /HPF (NONE SEEN); UR NITRITE (Dip) NEGATIVE (NEGATIVE); UR RBC 110 /HPF (0-5); UR SPECIFIC GRAVITY (Dip) 1.025 (1.003-1.030); UR SQUAMOUS EPITHELIAL CELL MODERATE /HPF (FEW); UR TOTAL PROTEIN (Dip) 1+ mg/dl (NEGATIVE); UR UROBILINOGEN (Dip) 1+ mg/dL (NEGATIVE); UR WBC 5 /HPF (0-5)
[2018-08-03 20:42] LABS: ALANINE AMINOTRANSFERASE 36 IU/L (13-69); ALBUMIN 4.6 g/dl (3.3-4.9); ALBUMIN/GLOBULIN RATIO 1.21; ALKALINE PHOSPHATASE 72 IU/L (42-121); ANION GAP 9 (5-13); ASPARTATE AMINO TRANSFERASE 27 IU/L (15-46); BLOOD UREA NITROGEN 9 mg/dl (7-20); CALCIUM 9.4 mg/dl (8.4-10.2); CARBON DIOXIDE 25 mmol/L (21-31); CHLORIDE 107 mmol/L (97-110); CREATININE 0.61 mg/dl (0.44-1.00); Estimated GFR > 60 mL/min (>60); GLUCOSE 93 mg/dl (70-220); LIPASE 173 U/L (23-300); POTASSIUM 3.9 mmol/L (3.5-5.1); SODIUM 141 mmol/L (135-144); TOTAL PROTEIN 8.4 g/dl (6.1-8.1)
[2018-08-03 20:47] LABS: INR 0.98; PROTIME 13.1 Sec (11.9-14.9)
[2018-08-03] MEDS: HYDROmorphONE 2 MG/ML SYG IV ×2 (20:55→21:55)
== END 2018-08-03 22:30 | disposition home or self-care (01) ==
LOC: FTE 16:32
DX: C64.1 Malignant neoplasm of right kidney, except renal pelvis (principal)
CPT/HCPCS: 36415; 80053; 81001; 81025; 83690; 85025; 85610; 85730; 96372; 96374; 96376; 99284-25

== ENCOUNTER 2018-08-12 16:54 | Emergency (ER) | payer OTHER ==
[2018-08-12] MEDS ORDERED: morphine 4 MG/ML VIAL IV (17:45)
[2018-08-12 18:11] LABS: ADD MAN DIFF? NO
[2018-08-12 18:20] LABS: WHITE BLOOD COUNT 14.3 10^3/ul (4.8-10.8)
[2018-08-12 18:20] LABS: BASOPHIL # 0.1 10^3/ul (0.0-0.1); BASOPHILS % 0.4 % (0.0-2.0); EOSINOPHILS # 0.3 10^3/ul (0.0-0.5); EOSINOPHILS % 1.9 % (0.0-7.0); HEMATOCRIT 35.6 % (37.0-47.0); HEMOGLOBIN 11.6 g/dl (12.0-16.0); LYMPHOCYTES % 14.1 % (15.0-51.0); MEAN CORPUSCULAR HEMOGLOBIN 28.6 pg (29.0-33.0); MEAN CORPUSCULAR HGB CONC 32.6 g/dl (32.0-37.0); MEAN CORPUSCULAR VOLUME 87.9 fl (82.0-101.0); MEAN PLATELET VOLUME 12.4 fl (7.4-10.4); MONOCYTE # 1.2 10^3/ul (0.3-0.9); MONOCYTES % 8.5 % (0.0-11.0); NEUTROPHIL # 10.7 10^3/ul (1.6-7.5); NEUTROPHILS % 74.8 % (39.0-77.0); PLATELET COUNT 209 10^3/UL (140-415); RED BLOOD COUNT 4.05 10^6/ul (4.20-5.40); RED CELL DISTRIBUTION WIDTH 14.4 % (11.5-14.5)
[2018-08-12 18:24] LABS: ADD UMIC YES; UR ASCORBIC ACID NEGATIVE (NEGATIVE); UR BACTERIA FEW /HPF (NONE SEEN); UR BILIRUBIN (Dip) NEGATIVE (NEGATIVE); UR BLOOD (Dip) 2+ mg/dL (NEGATIVE); UR CLARITY CLEAR (CLEAR); UR COLOR YELLOW (YELLOW); UR GLUCOSE (Dip) NEGATIVE (NEGATIVE); UR KETONES (Dip) NEGATIVE (NEGATIVE); UR LEUKOCYTE ESTERASE (Dip) NEGATIVE Leu/ul (NEGATIVE); UR NITRITE (Dip) NEGATIVE (NEGATIVE); UR RBC 15 /HPF (0-5); UR SPECIFIC GRAVITY (Dip) 1.015 (1.003-1.030); UR TOTAL PROTEIN (Dip) NEGATIVE (NEGATIVE); UR UROBILINOGEN (Dip) NEGATIVE (NEGATIVE); UR WBC 1 /HPF (0-5)
[2018-08-12] MEDS: ONDANSETRON 4 MG INJ IV (18:59)
[2018-08-12 19:00] LABS: ANION GAP 10 (5-13); BLOOD UREA NITROGEN 6 mg/dl (7-20); CALCIUM 8.9 mg/dl (8.4-10.2); CARBON DIOXIDE 26 mmol/L (21-31); CHLORIDE 102 mmol/L (97-110); CREATININE 0.59 mg/dl (0.44-1.00); Estimated GFR > 60 mL/min (>60); GLUCOSE 104 mg/dl (70-220); POTASSIUM 4.2 mmol/L (3.5-5.1); SODIUM 138 mmol/L (135-144)
[2018-08-12] MEDS: HYDROmorphONE 0.5 MG/0.5 ML SYG IV (19:00)
[2018-08-12] MEDS: SOD CHLORIDE 0.9% 1,000 ML IV (19:00)
== END 2018-08-12 19:45 | disposition home or self-care (01) ==
LOC: E/R 16:54
DX: R10.32 Left lower quadrant pain (principal); Z85.528 Personal history of other malignant neoplasm of kidney
CPT/HCPCS: 36415; 74176; 80048; 81001; 81025; 85025; 96374; 96375; 99285-25

== ENCOUNTER 2018-10-05 16:12 | Emergency (ER) | payer OTHER ==
[2018-10-05] MEDS ORDERED: ONDANSETRON 4 MG TAB PO (17:00)
[2018-10-05] MEDS: ONDANSETRON (ODT) 4 MG TAB ODT (17:08)
[2018-10-05 17:22] LABS: ADD MAN DIFF? NO
[2018-10-05 17:32] LABS: BASOPHIL # 0.1 10^3/ul (0.0-0.1); BASOPHILS % 0.6 % (0.0-2.0); EOSINOPHILS # 0.1 10^3/ul (0.0-0.5); EOSINOPHILS % 1.3 % (0.0-7.0); HEMATOCRIT 36.4 % (37.0-47.0); HEMOGLOBIN 11.6 g/dl (12.0-16.0); LYMPHOCYTES # 2.8 10^3/ul (0.8-2.9); LYMPHOCYTES % 33.5 % (15.0-51.0); MEAN CORPUSCULAR HEMOGLOBIN 28.5 pg (29.0-33.0); MEAN CORPUSCULAR HGB CONC 31.9 g/dl (32.0-37.0); MEAN CORPUSCULAR VOLUME 89.4 fl (82.0-101.0); MEAN PLATELET VOLUME 12.2 fl (7.4-10.4); MONOCYTE # 0.7 10^3/ul (0.3-0.9); MONOCYTES % 7.9 % (0.0-11.0); NEUTROPHIL # 4.6 10^3/ul (1.6-7.5); NEUTROPHILS % 56.5 % (39.0-77.0); PLATELET COUNT 214 10^3/UL (140-415); RED BLOOD COUNT 4.07 10^6/ul (4.20-5.40); RED CELL DISTRIBUTION WIDTH 13.6 % (11.5-14.5)
[2018-10-05 17:32] LABS: WHITE BLOOD COUNT 8.2 10^3/ul (4.8-10.8)
[2018-10-05 17:44] LABS: ADD UMIC YES; UR ASCORBIC ACID NEGATIVE (NEGATIVE); UR BACTERIA FEW /HPF (NONE SEEN); UR BILIRUBIN (Dip) NEGATIVE (NEGATIVE); UR BLOOD (Dip) 2+ mg/dL (NEGATIVE); UR CLARITY CLOUDY (CLEAR); UR COLOR YELLOW (YELLOW); UR GLUCOSE (Dip) NEGATIVE (NEGATIVE); UR KETONES (Dip) NEGATIVE (NEGATIVE); UR LEUKOCYTE ESTERASE (Dip) NEGATIVE Leu/ul (NEGATIVE); UR MUCUS MANY /HPF (NONE SEEN); UR NITRITE (Dip) NEGATIVE (NEGATIVE); UR RBC 13 /HPF (0-5); UR SPECIFIC GRAVITY (Dip) 1.024 (1.003-1.030); UR SQUAMOUS EPITHELIAL CELL MODERATE /HPF (FEW); UR TOTAL PROTEIN (Dip) NEGATIVE (NEGATIVE); UR UROBILINOGEN (Dip) NEGATIVE (NEGATIVE); UR WBC 2 /HPF (0-5)
[2018-10-05 17:55] LABS: ALANINE AMINOTRANSFERASE 30 IU/L (13-69); ALBUMIN 4.1 g/dl (3.3-4.9); ALBUMIN/GLOBULIN RATIO 1.13; ALKALINE PHOSPHATASE 50 IU/L (42-121); ANION GAP 8 (5-13); ASPARTATE AMINO TRANSFERASE 23 IU/L (15-46); BILIRUBIN,INDIRECT 0.5 mg/dl (0-1.1); BILIRUBIN,TOTAL 0.5 mg/dl (0.2-1.3); BLOOD UREA NITROGEN 5 mg/dl (7-20); CALCIUM 8.9 mg/dl (8.4-10.2); CARBON DIOXIDE 29 mmol/L (21-31); CHLORIDE 102 mmol/L (97-110); CREATININE 0.71 mg/dl (0.44-1.00); Estimated GFR > 60 mL/min (>60); GLUCOSE 88 mg/dl (70-220); LIPASE 67 U/L (23-300); POTASSIUM 3.8 mmol/L (3.5-5.1); SODIUM 139 mmol/L (135-144); TOTAL PROTEIN 7.7 g/dl (6.1-8.1)
== END 2018-10-05 18:28 | disposition home or self-care (01) ==
LOC: FTE 16:12
DX: R11.10 Vomiting, unspecified (principal)
CPT/HCPCS: 36415; 80053; 81001; 83690; 85025; 99283